=== PATIENT | female | born 1975 | race Hispanic/Latino ===

== ENCOUNTER 2018-04-28 15:40 | Emergency (ER) | payer BC, OTHER ==
[2018-04-28 16:54] LABS: Urine Blood NEGATIVE (NEG); Urine Glucose NEGATIVE (NEG); Urine Protein NEGATIVE (NEG); Urine Specific Gravity 1.025 (1.005-1.030); Urine pH 6.5 (5.0-7.0)
[2018-04-28] MEDS ORDERED: IBUPROFEN 400 MG TAB ONE (16:57)
--- NOTE | 2018-04-28 17:11 | RAD REPORT ---
EXAM DESCRIPTION: RAD - Ribs Left - 04/28/2018 5:01 pm CLINICAL HISTORY: PAIN COMPARISON: No comparisons FINDINGS: A displaced rib fracture is not identified. No aggressive rib lesion seen. The underlying left lung appears clear.
--- NOTE | 2018-04-28 17:20 | EDPHYS ---
Physician Documentation [facility] Name: Zarina Wallace Age: 43 yrs Sex: Female : 1975 Arrival Date: 04/28/2018 Time: 15:46 Bed 9 Private MD: ED Physician Avila Souza HPI: 04/28 16:20 This 43 yrs old Female presents to ER via Ambulatory with complaints of Rib cp Pain. 16:20 The patient or guardian reports chest pain that is located primarily in the rib area cp below left breast. 16:20 Onset: 2 day(s) ago. cp 16:20 The pain does not radiate. Associated signs and symptoms: Pertinent negatives: cp abdominal pain, cough, diaphoresis, near syncope, shortness of breath, syncope. Modifying factors: the symptoms are aggravated by deep breath, movement. 16:20 Patient reports pain started after bear hugged her. 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 - Social history:: Smoking status: Patient/guardian denies using tobacco. - Ebola Screening: : No symptoms or risks identified at this time. ROS: 16:30 Constitutional: Negative for body aches, chills, fever, poor PO intake. cp 16:30 Eyes: Negative for injury, pain, redness, and discharge. cp 16:30 ENT: Negative for drainage from ear(s), ear pain, sore throat, difficulty swallowing, difficulty handling secretions. 16:30 Cardiovascular: Positive for chest pain, of the rib area below left breast, Negative for edema, palpitations. 16:30 Respiratory: Negative for cough, shortness of breath, wheezing. 16:30 Abdomen/GI: Negative for abdominal pain, nausea, vomiting, and diarrhea. 16:30 Back: Negative for pain at rest, pain with movement. 16:30 Skin: Negative for cellulitis, rash. 16:30 Neuro: Negative for altered mental status, dizziness, headache, weakness. 16:30 All other systems are negative. Exam: 16:33 Constitutional: The patient appears in no acute distress, alert, awake, cp non-diaphoretic, non-toxic, well developed, well nourished, obese. 16:33 Head/Face: Normocephalic, atraumatic. cp 16:33 Eyes: Periorbital structures: appear normal, Conjunctiva: normal, no exudate, no injection, Sclera: no appreciated abnormality, Lids and lashes: appear normal, bilaterally. 16:33 ENT: External ear(s): are unremarkable, Nose: is normal, Mouth: is normal. 16:33 Neck: ROM/movement: is normal, is supple, without pain, no range of motions limitations, no nuchal rigidity. 16:33 Chest/axilla: Inspection: normal, Palpation: crepitus, is not appreciated, tenderness, that is mild, of the area below left breast, that partially reproduces the patient's complaints. 16:33 Cardiovascular: Rate: normal, Rhythm: regular, JVD: is not appreciated. 16:33 Respiratory: the patient does not display signs of respiratory distress, Respirations: normal, no use of accessory muscles, no retractions, no splinting, no tachypnea, labored breathing, is not present, Breath sounds: are clear throughout, no decreased breath sounds, no stridor, no wheezing. 16:33 Abdomen/GI: Inspection: abdomen appears normal, Bowel sounds: active, all quadrants, Palpation: abdomen is soft and non-tender, in all quadrants. 16:35 Back: pain, is absent, ROM is normal. cp 16:35 Skin: Exam negative for ecchymosis, rash. Vital Signs: 15:53 BP 137 / 82; Pulse 89; Resp 16 S; Temp 98.3(TE); Pulse Ox 100% on R/A; Weight 106.14 kg aa5 (R); Height 5 ft. 6 in. (167.64 cm) (R); Pain 8/10; 15:53 Body Mass Index 37.77 (106.14 kg, 167.64 cm) aa5 MDM: 15:58 Patient medically screened. cp 17:00 Differential diagnosis: chest wall pain, rib contusion, rib fracture, rib dislocation. cp 17:20 Data reviewed: vital signs, nurses notes, radiologic studies, plain films. cp 17:20 Test interpretation: by ED physician or midlevel provider: plain radiologic studies. cp Counseling: I had a detailed discussion with the patient and/or guardian regarding: the historical points, exam findings, and any diagnostic results supporting the discharge/admit diagnosis, radiology results, to return to the emergency department if symptoms worsen or persist or if there are any questions or concerns that arise at home. 04/28 16:45 Order name: Urine Dipstick--Ancillary (enter results); Complete Time: 17:16 ss 04/28 16:45 Order name: Urine --Ancillary (enter results); Complete Time: 17:16 ss 04/28 16:17 Order name: XRAY Ribs LEFT; Complete Time: 17:16 cp 04/28 17:16 Interpretation: Report reviewed. cp 04/28 16:17 Order name: Urine Dipstick-Ancillary (obtain specimen); Complete Time: 16:43 cp 04/28 16:17 Order name: Urine Test (obtain specimen); Complete Time: 16:43 cp Administered Medications: 17:12 Drug: Ibuprofen 800 mg Route: PO; aj1 Disposition: 19:31 Co-signature as Attending Physician, Avila Souza MD. Disposition: 04/28/18 17:20 Discharged to Home. Impression: Other chest pain. - Condition is Stable. - Discharge Instructions: Nonspecific Chest Pain, Form - Excuse from Work, School, or Physical Activity. - Prescriptions for Naprosyn 500 mg Oral Tablet - take 1 tablet by ORAL route 2 times per day take with food; 20 tablet. Tramadol 50 mg Oral Tablet - take 1 tablet by ORAL route every 8 hours as needed; 12 tablet. - Medication Reconciliation Form, Thank You Letter, Antibiotic Education, Prescription Opioid Use form. - Follow up: Private Physician; When: 2 - 3 days; Reason: Worsening of condition. - Problem is new. - Symptoms have improved. Signatures: Dispatcher [employer] Isa Rosenberg RN RN aj1 Lucy Tabares RN RN aa5 Maryann Boland RN RN ss Page, Corey, PA PA cp Starr, Gregory, MD MD gs Corrections: (The following items were deleted from the chart) 17:38 17:20 04/28/2018 17:20 Discharged to Home. Impression: Other chest pain. Condition is ss Stable. Forms are Medication Reconciliation Form, Thank You Letter, Antibiotic Education, Prescription Opioid Use. Follow up: Private Physician; When: 2 - 3 days; Reason: Worsening of condition. Problem is new. Symptoms have improved. cp
--- NOTE | 2018-04-28 17:20 | ER ---
Nurse's Notes [facility] Name: Zarina Wallace Age: 43 yrs Sex: Female : 1975 Arrival Date: 04/28/2018 Time: 15:46 Bed 9 Private MD: Diagnosis: Other chest pain Presentation: 04/28 15:52 Presenting complaint: Presenting complaint: Patient states: c/o pain to left lower rib aa5 cage pain that began Saturday after a "bear hug". Transition of care: patient was not received from another setting of care. Onset of symptoms was April 2018. Risk Assessment: Do you want to hurt yourself or someone else? Patient reports no desire to harm self or others. Initial Sepsis Screen: Does the patient meet any 2 criteria? No. Patient's initial sepsis screen is negative. Does the patient have a suspected source of infection? No. Patient's initial sepsis screen is negative. Care prior to arrival: None. 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 - Social history:: Smoking status: Patient/guardian denies using tobacco. - Ebola Screening: : No symptoms or risks identified at this time. Screenin:52 Abuse screen: Denies threats or abuse. Denies injuries from another. Nutritional aj1 screening: No deficits noted. Tuberculosis screening: No symptoms or risk factors identified. 17:37 Fall Risk None identified. ss Assessment: 16:15 General: Appears in no apparent distress. comfortable, Behavior is calm, cooperative, aj1 appropriate for age. Pain: Complains of pain in left lateral anterior chest. Neuro: Level of Consciousness is awake, alert, obeys commands. Cardiovascular: Patient's skin is warm and dry. Respiratory: Airway is patent Respiratory effort is even, unlabored, Respiratory pattern is regular, symmetrical. GI: No signs and/or symptoms were reported involving the gastrointestinal system. : No signs and/or symptoms were reported regarding the genitourinary system. EENT: No signs and/or symptoms were reported regarding the EENT system. Derm: No signs and/or symptoms reported regarding the dermatologic system. Skin is pink, warm \\T\\ dry. normal. Musculoskeletal: No signs and/or symptoms reported regarding the musculoskeletal system. Circulation, motion, and sensation intact. Vital Signs: 15:53 BP 137 / 82; Pulse 89; Resp 16 S; Temp 98.3(TE); Pulse Ox 100% on R/A; Weight 106.14 kg aa5 (R); Height 5 ft. 6 in. (167.64 cm) (R); Pain 8/10; 15:53 Body Mass Index 37.77 (106.14 kg, 167.64 cm) aa5 ED Course: 15:46 Patient arrived in ED. mr 15:52 Arm band placed on. aa5 15:53 Triage completed. aa5 15:58 Doug King PA is PHCP. cp 15:58 Avila Souza MD is Attending Physician. cp 16:07 Isa Ferrell RN is Primary Nurse. aj1 16:52 Patient has correct armband on for positive identification. Bed in low position. Call aj1 light in reach. Side rails up X 1. 16:52 No provider procedures requiring assistance completed. aj1 17:02 XRAY Ribs LEFT In Process Unspecified. EDMS 17:37 Patient did not have IV access during this emergency room visit. ss Administered Medications: 17:12 Drug: Ibuprofen 800 mg Route: PO; aj1 Outcome: 17:20 Discharge ordered by . cp 17:37 Discharged to home ambulatory. ss 17:37 Condition: good 17:37 Discharge instructions given to patient, Instructed on discharge instructions, follow up and referral plans. medication usage, Demonstrated understanding of instructions, follow-up care, medications, Prescriptions given X 2. 17:38 Patient left the ED. ss Signatures: Dispatcher [employer] EDDE Isa Ferrell RN RN aj1 Estella Davis Audri, RN RN aa5 Maryann Boland RN RN Doug King PA PA cp Corrections: (The following items were deleted from the chart) 15:57 15:52 Presenting complaint: Patient states: c/o pain to left lower rib cage pain that aa5 began Saturday. Presenting complaint: Patient states: c/o pain to left lower rib cage pain that began Saturday. aa5 : 16:52 General: Appears in no apparent distress. comfortable, Behavior is calm, aj1 cooperative, appropriate for age, aj 16:52 Pain: Complains of pain in left lateral anterior chest aj1 aj 16:52 Neuro: Level of Consciousness is awake, alert, obeys commands, aj1 aj 16:52 Cardiovascular: Patient's skin is warm and dry. aj1 aj1 16:52 Respiratory: Airway is patent Respiratory effort is even, unlabored, Respiratory aj1 pattern is regular, symmetrical, aj1 16:52 GI: No signs and/or symptoms were reported involving the gastrointestinal system. aj1 aj1 16:52 : No signs and/or symptoms were reported regarding the genitourinary system. aj1aj1 16:52 EENT: No signs and/or symptoms were reported regarding the EENT system. aj1 aj 16:52 Derm: No signs and/or symptoms reported regarding the dermatologic system. Skin aj1 is pink, warm \\T\\ dry. normal, aj 16:52 Musculoskeletal: No signs and/or symptoms reported regarding the musculoskeletal aj1 system. Circulation, motion, and sensation intact. aj1
== END 2018-04-28 17:38 | disposition home or self-care (01) ==
LOC: ER 15:40
DX: R07.89 Other chest pain (principal); R07.81 Pleurodynia; I10 Essential (primary) hypertension; Z88.5 Allergy status to narcotic agent
CPT/HCPCS: 81003; 81025; 99283

== ENCOUNTER 2018-08-07 06:00 | Day surgery (SDC) | payer BC ==
[2018-07-31 10:52] LABS: Absolute Lymphocytes (CBC) 2.4 K/uL (0.7-4.9); Absolute Monocytes 0.5 K/uL (0.1-1.3); Basophils % 0.5 % (0-1.3); Eosinophils % 1.6 % (0-4.4); Lymphocytes % 34.3 % (15.3-44.8); MPV 8.1 fL (7.6-11.3); Monocytes % 7.6 % (3.3-12.3); RBC Red Blood Cell Count 5.16 M/uL (3.86-4.86)
[2018-07-31 11:03] LABS: BUN Blood Urea Nitrogen 14 mg/dL (7-18); Bicarbonate 30 mmol/L (21-32); Glucose Level 85 mg/dL (74-106); Sodium Level 141 mmol/L (136-145)
--- NOTE | 2018-07-31 11:03 | RAD REPORT ---
EXAM DESCRIPTION: RAD - Chest Pa And Lat (2 Views) - 07/31/2018 10:58 am CLINICAL HISTORY: Preop for surgery Chest pain. COMPARISON: CHEST SINGLE VIEW dated 01/02/2015; CHEST SINGLE VIEW dated 08/06/2014; CHEST SINGLE VIEW dated 02/22/2014; CHEST PA AND LAT 2 VIEW dated 08/10/2013No comparisons FINDINGS: The lungs are clear. The heart is normal in size. No displaced fractures. IMPRESSION: No acute or concerning finding suspected.
--- NOTE | 2018-07-31 11:10 | EKG ---
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
--- NOTE | 2018-08-06 17:50 | PREOPHP ---
Date of Admission: 07/31/2018 History Of Present Illness: This patient presented to my office with a chief complaint of painful he els on both feet. The patient has undergone injections, orthotics, changing shoe gear, anti-inflamma tories, stretching, ice, all with limited relief. 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 The patient requests surgical management . The pain is throbbing in nature, relieved by rest, present for many months. Current Medical History: Includes hypertension. Medications: Amlodipine 5 mg, losartan 100 mg. Surgical History: Includes tonsillectomy, , and gallbladder removal. Family History: Positive for hypertension in her mother and father. Cancer in her mother. Social History: The patient currently denies tobacco, alcohol, or IV drug use. Allergies: CODEINE WITH VOMITING AND NAUSEA, BUT VICODIN IS NOT A PROBLEM FOR THE PATIENT. Physical Examination: General: The patient is healthy, well developed, well nourished, well oriented x3. Vascular: Evaluation reveals dorsalis pedis and posterior tibial pulses are palpable bilaterally. C apillary refill time is 1 second. Temperature gradient is within normal limits. There is no claudic ation complaint or signs of DVT bilaterally. Musculoskeletal: Evaluation reveals of semirigid cavus foot type bilateral with a normal subtalar yoel int position, but a forefoot supinatus and adductus position bilaterally. Equinus is noted to be 0 d egrees bilaterally. The digits both feet are in the normal alignment. Muscle, knee and ankle assess ment is within normal limits. There is tenderness on palpation of the plantar fascia on both feet wi thout redness, swelling or temp. No soft tissue masses are palpated bilaterally. Skin: Evaluation reveals no rash, ulcer, tumor, or contracture. Neurologic: Evaluation reveals deep tendon reflexes of the patella and Achilles to be 5/5 bilaterall y. Vibratory and sharp dull sensation within normal limits. Diagnostic Data: X-ray evaluation reveals a calcaneal spur. No fracture, tumor, or degenerative manuela nt changes noted. Diagnosis: The patient has plantar fasciitis, both feet. Recommendation: The recommended treatment due to lack of failure of conservative care is for plantar fasciotomy on both feet. The patient has been fitted for postop shoes, understands there will be no work for at least 6 weeks at full duty, possible sedentary work after 2 weeks. The risks, benefits, and alternatives were plantar fasciotomy and discussed including the limited to the risk of pain, sw elling, numbness, stiffness, infection, nonhealing of skin or soft tissue, recurrence of the discomfo rt. Due to lack of response to conservative care, the patient requests surgical management. Lab wor kup has been performed. Medical H and P will be completed by Anesthesia. The patient is scheduled f or surgery at [facility], August 07, 2018. KUMAR Voice ID: [id number]
[2018-08-07] MEDS ORDERED: Ringers Lactate 1,000 ML IV ONE (06:47)
[2018-08-07] MEDS ORDERED: LIDOCAINE 1% MPF 30 ML VIAL ONE (07:28)
[2018-08-07] MEDS ORDERED: PROPOFOL 200 MG/20 ML VIAL IV ONE ×2 (07:35→07:52)
[2018-08-07] MEDS ORDERED: LIDOCAINE 2% MPF 5 ML VIAL ONE (07:36)
[2018-08-07] MEDS ORDERED: MIDAZOLAM HCL 2 MG/2 ML INJ ONE (07:36)
[2018-08-07] MEDS ORDERED: FENTANYL CITR 100 MCG/2 ML ONE (07:36)
--- NOTE | 2018-08-07 14:23 | OP ---
Date of Procedure: 08/07/2018 Surgeon: Juan David Wheeler DPM Preoperative Diagnosis: Plantar fasciitis, both feet. Postoperative Diagnosis: Plantar fasciitis, both feet. Procedure: Plantar fasciotomy, right and left foot. Anesthesia: Via local infiltration. Procedure In Detail: The patient was brought into the operating room, placed on the operating table in supine position. Once adequate IV sedation was obtained, the patient was injected with a total of 9 cc of 0.5% Marcaine plain in each foot. The right extremity was elevated to 60 degrees. An Esmar ch bandage was applied to exsanguinate the blood supply. Pneumatic ankle tourniquet was elevated to 250 mmHg. Attention was then directed to the plantar medial aspect of the right foot where a [address] emeka medial incision was made just distal to the heel tuft. The incision was deepened via sharp and blunt dissection down to the level of the fascia. The fascia was identified visually and incised wi th a 15-blade, approximately 1 cm from the medial border laterally. The muscle belly was visualized superiorly and was undamaged. The area was flushed with copious amounts of sterile saline. All neur ologic structures were avoided. All bleeders were clamped and bovied. The incision was closed with 3-0 nylon suturing. The same technique, procedure, and results were obtained on the left foot, which had the same procedure. Both were dressed with Adaptic, dry sterile gauze, dry sterile Mary, Kerli x, and an Prashanth bandage. Pneumatic ankle tourniquet was deflated and capillary return was seen to be i nstantaneous to all digits. The patient was seen in my office for postoperative care. Postop instructions were given in the written form. KUMAR Voice ID: [id number] Report ID: [id number]
--- NOTE | 2018-08-07 14:25 | DS ---
Date of Discharge: 08/07/2018 Date Of Surgery: 08/07/2018. Preoperative Diagnosis: Plantar fasciitis, bilateral. Postoperative Diagnosis: Plantar fasciitis, bilateral. Procedure: Plantar fasciotomy, bilateral. Hospital Course: The patient tolerated the procedure and anesthesia well and was sent to Recovery in satisfactory condition will be discharged to home per anesthesia guidelines. The patient will resume a normal diet and ambulate in postop shoes. The patient was given written postop instructions and e mergency phone number. The patient will follow up in my office in 1 week. KUMAR Voice ID: [id number] Report ID: [id number]
== END 2018-08-07 09:53 | disposition home or self-care (01) ==
LOC: OR 06:00
PROVIDERS: ATTEND Podiatrist
PROC: 0JNQ0ZZ Release Right Foot Subcutaneous Tissue and Fascia, Open Approach (ICD-10-PCS; 2018-08-07)
PROC: 0JNR0ZZ Release Left Foot Subcutaneous Tissue and Fascia, Open Approach (ICD-10-PCS; principal; 2018-08-07 07:30)
DX: M72.2 Plantar fascial fibromatosis (principal); I10 Essential (primary) hypertension; Z79.899 Other long term (current) drug therapy
CPT/HCPCS: 36415; 71046; 80048; 81025; 85025; 93005; J2250; J2704; J3010